=== PATIENT | male | born 1955 | race Caucasian/White ===

== ENCOUNTER → 2017-09-02 | Day surgery (SDC) | payer BC, OTHER ==
[2017-08-19 08:15] VITALS: Ht 177.8 cm; Wt 104.5 kg
[~2017-09-02] VITALS: Ht 177.8 cm; Wt 104.5 kg
[~2017-09-02] MED LIST: LIDOCAINE HCL 2% 2 ML VIAL (20MG/ML) ONE; PANT40TA PO; PROPOFOL IV EMULSION 10 MG/ML 20 ML VIAL IV ONE; SODIUM CHLORIDE 0.9% 500ML 500 ML IV ONE
[2017-09-02 12:30] VITALS: TEMP 36.7
--- NOTE | 2017-09-02 13:02 | Endo History and Physical ---
History & Physical Date of Service: Sep 02, 2017. Chief Complaint: HISTORY OF POLYPS, FAMILY HISTORY OF COLON CA Referring Physician: DR MART History of Present Illness 61 yo CM who presents for colonoscopy secondary to history of colon polyps and family history of colon cancer. Past Surgical History Hx Cardiac Surgery: No Hx Internal Defibrillator: No Hx Pacemaker: No Hx Abdominal Surgery: No Hx of Implantable Prosthesis: No Hx Post-Op Nausea and Vomiting: No Hx Cancer Surgery: No Hx Thoracic Surgery: No Hx Orthopedic: No Hx Urinary Tract Surgery: No Family History Colon CA Social History Smoking Status: Never Smoker Hx Substance Use: No Hx Alcohol Use: No Allergies Coded Allergies: Penicillins (Unverified Allergy, Unknown, RASH, 09/02/17) Current Medications Reported Home Medications Medications Dose Route/Sig Max Daily Dose Days Date Category Protonix (Pantoprazole Sodium) 40 Mg Tab 40 Mg PO DAILY PRN 08/19/17 Reported Vital Signs Weight (Kilograms): 104.55 Height (Feet): 5 Height (Inches): 10 Physical Exam General Appearance: WD/WN, no apparent distress Respiratory/Chest: Auscultation: breath sounds normal Cardiovascular: Heart Auscultation: RRR Abdomen: Bowel Sounds: normal Inspection & Palpation: soft, non-distended, no tenderness, guarding & rebound Assessment and Plan Assessment: 61 yo CM who presents for colonoscopy secondary to history of colon polyps and family history of colon cancer. Plan: Proceed with colonoscopy.
--- NOTE | 2017-09-02 13:51 | Discharge Instructions ---
Endoscopy Patient Instructions Date / Procedure(s) Performed Sep 02, 2017. Colonoscopy Allergy Information Coded Allergies: Penicillins (Unverified Allergy, Unknown, RASH, 09/02/17) Discharge Date / Findings Sep 02, 2017. Rectal polyp Diverticulosis Internal hemorrhoids Medication Instructions OK to resume all medications today as prescribed Reported Home Medications Medications Dose Route/Sig Max Daily Dose Days Date Category Protonix (Pantoprazole Sodium) 40 Mg Tab 40 Mg PO DAILY PRN 08/19/17 Reported Provider Instructions Activity Restrictions - No exercising or heavy lifting for 24 hours. - Do not drink alcohol the day of the procedure. - Do not drive a car or operate machinery until the day after the procedure. - Do not make any important decisions or sign important papers in 24 hours after the procedure. Following Day: - Return to full activity which may include returning to work/school. Diet Start your diet with liquids and light foods (jello, soup, juice, toast). Then eat your usual diet if not nauseated. Treatment For Common After Affects For mild abdominal pain, bloating, or excessive gas: - Rest - Eat lightly - Lie on right side Follow-Up Information Follow-up with DR MART as scheduled Anesthesia Information What You Should Know You have had a procedure that required some medicine to reduce anxiety and discomfort. This treatment is called moderate sedation. After receiving the treatment, you may be sleepy, but you will be able to breathe on your own. The effects of the treatment may last for several hours. Follow these instructions along with Activity/Diet recommendations noted above: * Do NOT do anything where dizziness or clumsiness would be dangerous. * Rest quietly at home today, then you can be up and about tomorrow. * Have a responsible person stay with you the rest of today. * You may have had an I.V. today. If so, you may take the dressing off later today. Recommendations Call your doctor if: * Trouble breathing * Continuous vomiting for more than 24 hours * Temperature above 101 degrees * Severe abdominal pain or bloating * Pain not relieved by pain medicine ordered * There is increased drainage or redness from any incision * A large amount of rectal bleeding greater than 2-3 tablespoons. (If you had a polyp/s removed or have hemorrhoids, a small amount of blood - from the rectum is to be expected.) * You have any unanswered questions or concerns. IN THE EVENT OF A SERIOUS EMERGENCY, GO TO THE NEAREST EMERGENCY ROOM Your discharge instructions were prepared by provider Rashad Hernandez. Patient Instructions Signature Page Sean Anderson Patient (or Guardian) Signature/Date: I have read and understand the instructions given to me by my caregivers. Caregiver/RN/Doctor Signature/Date: The above-named patient and/or guardian has received patient instructions on this date. + Original Patient Signature Page (only) stays with chart. Please make copy for patient.
--- NOTE | 2017-09-02 13:58 | GI REPORT ---
Procedure Date: 09/02/2017 1:10 PM Procedure: Colonoscopy Indications: High risk colon cancer surveillance: Personal history of colonic polyps, Family history of colon cancer in a first-degree relative Medicines: Monitored Anesthesia Care Complications: No immediate complications. Estimated Blood Loss: Estimated blood loss: none. Procedure: Pre-Anesthesia Assessment: - Prior to the procedure, a History and Physical was performed, and patient medications and allergies were reviewed. The patient's tolerance of previous anesthesia was also reviewed. The risks and benefits of the procedure and the sedation options and risks were discussed with the patient. All questions were answered, and informed consent was obtained. Prior Anticoagulants: The patient has taken no previous anticoagulant or antiplatelet agents. ASA Grade Assessment: II - A patient with mild systemic disease. After reviewing the risks and benefits, the patient was deemed in satisfactory condition to undergo the procedure. After I obtained informed consent, the scope was passed under direct vision. Throughout the procedure, the patient's blood pressure, pulse, and oxygen saturations were monitored continuously. The scope was introduced through the anus and advanced to the terminal ileum. The colonoscopy was performed without difficulty. The patient tolerated the procedure well. The quality of the bowel preparation was good. The terminal ileum, ileocecal valve, appendiceal orifice, and rectum were photographed. Findings: The perianal and digital rectal examinations were normal. Multiple small-mouthed diverticula were found in the sigmoid colon. A 3 mm polyp was found in the rectum. The polyp was sessile. The polyp was removed with a cold biopsy forceps. Resection and retrieval were complete. Non-bleeding internal hemorrhoids were found during retroflexion. The hemorrhoids were small. Impression: - Diverticulosis in the sigmoid colon. - One 3 mm polyp in the rectum, removed with a cold biopsy forceps. Resected and retrieved. - Non-bleeding internal hemorrhoids. Recommendation: - Resume previous diet. - Continue present medications. - Repeat colonoscopy for surveillance based on pathology results. - Return to primary care physician as previously scheduled. Rashad Hernandez DO 09/02/2017 1:57:38 PM This report has been signed electronically. Note Initiated On: 09/02/2017 1:10 PM I attest to the content of the Intraoperative Record and orders documented therein, exceptions below
--- NOTE | 2017-09-02 14:16 | Anesthesiology Progress Note ---
Anesthesia Post Op Note Date & Time Sep 02, 2017 at 14:15 Vital Signs Pain Intensity: 0 Vital Signs Past 12 Hours Date Time Temp Pulse Resp B/P (MAP) Pulse Ox O2 Delivery O2 Flow Rate FiO2 09/02/17 14:07 56 18 136/96 (109) 97 Room Air 09/02/17 13:51 59 16 115/80 (92) 95 Room Air 09/02/17 12:30 36.7 61 18 141/111 (121) 96 Room Air Notes Mental Status: alert / awake / arousable, participated in evaluation Pt Amnestic to Procedure: Yes Nausea / Vomiting: adequately controlled Pain: adequately controlled Airway Patency, RR, SpO2: stable & adequate BP & HR: stable & adequate Hydration State: stable & adequate Anesthetic Complications: no major complications apparent
[2017-09-02 14:22] VITALS: BP 154/96; PULSE 53; O2SAT 98
== END | disposition home or self-care (01) ==
LOC: C.GI 12:11
PROVIDERS: ATTEND Internal Medicine
DX: Z12.11 Encounter for screening for malignant neoplasm of colon (principal); K57.30 Diverticulosis of large intestine without perforation or abscess without bleeding; K62.1 Rectal polyp; K64.8 Other hemorrhoids; Z86.010 Personal history of colon polyps; Z80.0 Family history of malignant neoplasm of digestive organs; Z88.0 Allergy status to penicillin; E66.9 Obesity, unspecified; Z68.33 Body mass index [BMI] 33.0-33.9, adult

== ENCOUNTER 2020-02-13 07:17 | Observation (INO) ==
--- NOTE | 2020-01-15 12:02 | PAT Medication Instructions ---
Medication Instructions Date of Service January 15, 2020 Home Medications Medication Instructions Recorded pantoprazole 40 mg tablet,delayed 40 mg PO DAILY PRN #90 tab 07/31/19 release pantoprazole 40 mg tablet,delayed release 40 mg PO DAILY PRN [Glucosamine Chondroitin] 1 cap PO 3XWK STOP taking 2 weeks before surgery If surgery is within 2 weeks, stop taking as soon as possible. [Glucosamine Chondroitin] 1 cap PO 3XWK Take morning of surgery With a small sip of water, OTHERWISE NOTHING TO EAT OR DRINK AFTER MIDNIGHT: pantoprazole 40 mg tablet,delayed release 40 mg PO DAILY PRN (if needed) Other Notes If you have any questions please call us at [phone] or [phone] or [phone] or [phone]
--- NOTE | 2020-01-16 12:52 | Anesthesiology Consultation ---
Date of Service January 16, 2020 Assessment & Plan (1) Encounter for pre-operative examination: COVID Status: As of 01/15 assessment, patient denies travel to endemic area, known exposure/sick contacts, or symptoms of COVID19. Patient instructed that they and their household members must follow strict social distancing guidelines, wear a mask in public and avoid travel for 14 days prior to surgery. Preoperative COVID19 testing to be completed prior to surgery per surgeon's arra ngements. Patient made aware to self-isolate as much as possible between COVID testing and surgery. Patient had a knee scope [place] [facility] [place] -- uneventful intraoperative course, but became unresponsive in PACU after being given "25 mcg Fentanyl IV @ 1449, 1454 and 1459. At 1520, while recovery and D/C instructions with at bedside - pt became unresponsive. ... Intubated backslash mask ventilation, patient's respiratory effort was minimal - RR 4/min? Treated with Narcan 40mcg IV x 3 with rapid improvement in LOC and respiratory status. Pt observed for 1 hour after resuscitation before d/c to home." See full report from 08/08/19 from [facility] scanned to chart for details. Chart Review Chart Review: Acceptable Risk for Surgery (pending surgeon ordered PCP clearance 01/18) and Patient seen in Pre Admission Testing Teaching & Discussion Instructed NPO after midnight before surgery, except medications with 15 cc of water. Medication instructions provided according to the PAT guidelines. History Surgery Operation Date: 02/13/20 12:55 Proposed Procedures p Left Total Knee Arthroplasty - Royce Florence DO Height/Weight Height: 5 ft 10 in Weight: 114.4 kg Allergies Allergy/AdvReac Type Severity Reaction Status Date / Time fentanyl Allergy Severe STOPPED Verified 01/11/20 08:57 BREATHING Penicillins Allergy Mild RASH Unverified 01/11/20 08:54 Medications Home Medications Medication Instructions Recorded Confirmed Last Taken pantoprazole 40 mg tablet,delayed 40 mg PO DAILY PRN #90 tab 07/31/19 01/11/20 Unknown release glucos sul [id number] 1 cap PO 3XWK 01/11/20 01/11/20 Unknown [Glucosamine Chondroitin] Past Medical History Medical History GERD (gastroesophageal reflux disease) Controlled Heart murmur CARDIAC WORK UP DONE IN PAST Osteoarthritis Exercise / Class Metabolic Activity II 4-5 Yardwork/Stairs/Walk up hill Past Family History Family History Brother Colon cancer Lymphoma Adult respiratory distress syndrome Family history of diabetes mellitus Father Myocardial infarction Mother Diabetes Peripheral vascular disease Family history of diabetes mellitus Sister Stroke Family history of diabetes mellitus Past Surgical History Surgical History History of arthroscopy RT KNEE History of carpal tunnel release RT History of colonoscopy History of tonsillectomy and adenoidectomy History of tooth extraction Past Anesthesia History No Family Hx of Anesthesia Complications (unsure) History of PONV No Hx of PONV and No Hx of Motion Sickness Social History Smoking Status: Never smoker Do You Dip or Chew Tobacco: No Hx Alcohol Use: No Hx Substance Use: No Review of Systems Pt denies any recent chest pain, shortness of breath, palpitations, cough, fever, URI, or uncontrolled acid reflux. Physical Exam Vital Signs BP: 152/83 P: 68bpm SPO2: 97% RA T: 98.5 F R: 16 ENMT Mouth: no dental restorations, no chipped teeth and no loose teeth Thyromental Distance: > or= 3.5 Finger Breadths Mallampati Class: I Neck normal visual inspection; neck extension not limited Respiratory normal respiratory effort Auscultation: lungs clear to auscultation bilaterally Cardiovascular Rate/Rhythm: regular rate and regular rhythm Heart Sounds: + murmur (II/ mitral area) Testing Laboratory Results 01/16/20 13:18 01/16/20 13:18 PT 10.8 Seconds (9.0-12.0) 01/16/20 13:18 INR 1.0 (0.9-1.1) 01/16/20 13:18 APTT 28.6 Seconds (21.0-31.0) 01/16/20 13:18 Hemoglobin A1c 5.8 % (4.5-5.6) H 01/16/20 13:18 Urine Color Yellow 01/16/20 Unknown Urine Appearance Clear (Clear) 01/16/20 Unknown Urine pH 5.0 (4.5-7.5) 01/16/20 Unknown Ur Specific [place] 1.022 (1.000-1.030) 01/16/20 Unknown Urine Protein Negative (Negative) 01/16/20 Unknown Urine Glucose (UA) Negative (Negative) 01/16/20 Unknown Urine Ketones Trace (Negative) H 01/16/20 Unknown Urine Nitrite Negative (Negative) 01/16/20 Unknown Ur Leukocyte Esterase Negative (Negative) 01/16/20 Unknown Blood Type B Positive 01/16/20 13:18 Antibody Screen NEGATIVE 01/16/20 13:18 Electrocardiogram Date: 07/21/19 Findings: + NSR @ (64bpm) Chest X-Ray Date: 09/26/19 Findings: + NAD Echocardiogram Date: 08/16/19 EF: 55-60% Mild concentric LVH. Mild to moderate aortic sclerosis. No hemodynamically significant valvular aortic stenosis. Mild mitral regurgitation.
[2020-01-16 14:24] LABS: Basophils # (auto) 0.01 K/uL (0-0.2); Basophils % (auto) 0.2 %; Eosinophils # (auto) 0.07 K/uL (0-0.5); Eosinophils % (auto) 1.6 %; Hematocrit (blood only) 42.1 % (42-52); Hemoglobin 14.4 g/dL (14.0-18.0); Lymphocytes % (auto) 36.1 %; Mean Corpuscular Hemoglobin 31.2 pg (25-34); Mean Corpuscular Hgb Conc 34.2 g/dL (32-36); Mean Corpuscular Volume 91.3 fL (80-100); Mean Platelet Volume 10.5 fL (7.4-10.4); Monocytes # (auto) 0.47 K/uL (0.11-0.59); Monocytes % (auto) 10.6 %; Neutrophils # (auto) 2.28 K/uL (1.4-6.5); Neutrophils % (auto) 51.5 %; Platelet Count 146 K/uL (130-400); RDW Coefficient of Variation 13.4 % (11.5-14.5); RDW Standard Deviation 44.4 fL (36.4-46.3); Red Blood Count 4.61 M/uL (4.7-6.1); White Blood Count 4.43 K/uL (4.8-10.8)
[2020-01-16 14:27] LABS: Appearance Urine Clear (Clear); Bilirubin Urine Negative (Negative); Blood Urine Negative (Negative); Color Urine Yellow; Glucose Urine UA Negative (Negative); Ketones Urine Trace (Negative); Leukocyte Esterase Urine Negative (Negative); Nitrite Urine Negative (Negative); Protein Urine Negative (Negative); Specific Gravity Urine 1.022 (1.000-1.030); Urobilinogen Urine Negative (Negative)
[2020-01-16 14:31] LABS: Albumin Level 3.7 gm/dl (3.4-5.0); BUN Creatinine Ratio 16.8 (10-20); Calcium 8.8 mg/dl (8.5-10.1); Creatinine Clr Calc Pharmacy 102.6 ml/min; Est GFR (African American) 105.2; Est GFR (Non-African American) 90.8; Potassium 3.5 mmol/L (3.5-5.1)
[2020-01-16 14:40] LABS: Partial Thromboplastin Time 28.6 Seconds (21.0-31.0); Prothrombin Time 10.8 Seconds (9.0-12.0)
[2020-01-16 15:01] LABS: Estimated Average Glucose 120 mg/dl; Hemoglobin A1C 5.8 % (4.5-5.6)
--- NOTE | 2020-01-26 09:03 | History & Physical Report ---
Date of Service January 26, 2020 Date of surgery: 02/13/20 procedure: Left Total Knee Arthroplasty Assessment & Plan (1) Arthritis of knee, left: presents with continued pain left knee, has bone on bone changes medial compartment with joint space narrowing, osteophyte formation and subchondral sclerosis. we discussed options, he would like to proceed with left total knee replacement at [facility]. The risks and benefits have been discussed including, but not limited to, risk of infection, nerve injury, stiffness, loss of motion, failure to improve, etc. Reasonable outcomes and options of treatment were discussed. An explanation of appropriate alternatives to the procedure that may be advantageous were discussed and their risks and benefits, as well as the risks and benefits of not proceeding with treatment. I offered to answer any additional inquiries concerning the treatment involved. All the patient's questions were answered. The patient is agreeable, understanding of the treatment plan and alternatives, and wishes to proceed with the treatment plan. History of Present Illness Chief Complaint: left knee pain Primary Care Provider: Lucio Freed MD Sean is a 64 year old male who complains of left knee pain, presents for pre- op evaluation prior to a left total knee replacement by dr Florence at [facility]. He complains of pain, crepitus, decreased range of motion, instability and stiffness in the left knee. He states that the symptoms have been chronic and non-traumatic and the symptoms occur constantly with intermittent worsening. Currently the patient states that the symptoms are moderate-severe. The pain is described as aching, sharp and throbbing. The symptoms occur continuously. The symptoms are aggravated by ascending stairs, daily activities, first steps while awake walking. Prior NSAIDs include Mobic, Aleve and IBU. Prior pain medications include Tylenol. He has had Pt and sometimes uses a knee brace. Allergies Allergy/AdvReac Type Severity Reaction Status Date / Time fentanyl Allergy Severe STOPPED Verified 01/19/20 09:46 BREATHING Penicillins Allergy Mild RASH Verified 01/19/20 09:46 Past Med/Surg History Medical History GERD (gastroesophageal reflux disease) Controlled Heart murmur CARDIAC WORK UP DONE IN PAST Osteoarthritis Surgical History History of arthroscopy RT KNEE History of carpal tunnel release RT History of colonoscopy History of tonsillectomy and adenoidectomy History of tooth extraction Family History Brother Colon cancer Lymphoma Adult respiratory distress syndrome Family history of diabetes mellitus Father Myocardial infarction Mother Diabetes Peripheral vascular disease Family history of diabetes mellitus Sister Stroke Family history of diabetes mellitus Social History Smoking Status: Never smoker Second Hand Exposure: Yes; Hx Alcohol Use: No Hx Substance Use: No Preferred Language: Greek Sock Knitter Required: No Beliefs That Will Affect Care: None marital status: Current Living Situation: Spouse current occupational status: retired Feels Safe at Home: Yes Review of Systems Review of Systems: All systems reviewed & are unremarkable except as noted in HPI & below Constitutional: no fever, no chills and no sweats Respiratory: no cough and no dyspnea Cardiovascular: no chest pain, no dyspnea and no orthopnea Gastrointestinal: no abdominal pain, no nausea and no vomiting Musculoskeletal: as per Subjective / HPI Physical Exam Physical Exam: Ht: 5ft 10in Wt: 114kg Constitutional: WD/WN, vitals as above no acute distress Respiratory: normal respiratory effort, lungs clear to auscultation no respiratory distress, no labored breathing and does not use accessory muscles Cardiovascular: RRR, no murmur, no edema Gastrointestinal (Abdomen): normal bowel sounds, soft, nontender, no hepatosplenomegaly Musculoskeletal: Knee: + knee abnormal to inspection (left knee), + effusion (+1 effusion), + surgical incision (well healed portals), + limited ROM of knee (ROM 0/3/110), + knee ROM with crepitation, + joint line tenderness (medial joint line) and + Chad's sign positive; no deformity, no skin erythema, no ecchymosis, no valgus laxity, no varus laxity, anterior drawer test negative, Marjorie's sign negative and pivot shift test negative Results & Data Results & Data ([facility]) Laboratory Results Laboratory Results WBC 4.43 K/uL (4.8-10.8) L 01/16/20 13:18 RBC 4.61 M/uL (4.7-6.1) L 01/16/20 13:18 Hgb 14.4 g/dL (14.0-18.0) 01/16/20 13:18 Hct 42.1 % (42-52) 01/16/20 13:18 MCV 91.3 fL (80-100) 01/16/20 13:18 MCH 31.2 pg (25-34) 01/16/20 13:18 MCHC 34.2 g/dL (32-36) 01/16/20 13:18 RDW Std Deviation 44.4 fL (36.4-46.3) 01/16/20 13:18 RDW Coeff of Vanessa 13.4 % (11.5-14.5) 01/16/20 13:18 Plt Count 146 K/uL (130-400) 01/16/20 13:18 MPV 10.5 fL (7.4-10.4) H 01/16/20 13:18 Immature Gran % (Auto) 0.0 % 01/16/20 13:18 Neut % (Auto) 51.5 % 01/16/20 13:18 Lymph % (Auto) 36.1 % 01/16/20 13:18 Grady % (Auto) 10.6 % 01/16/20 13:18 Eos % (Auto) 1.6 % 01/16/20 13:18 Baso % (Auto) 0.2 % 01/16/20 13:18 Neut # (Auto) 2.28 K/uL (1.4-6.5) 01/16/20 13:18 Lymph # (Auto) 1.60 K/uL (1.2-3.4) 01/16/20 13:18 Grady # (Auto) 0.47 K/uL (0.11-0.59) 01/16/20 13:18 Eos # (Auto) 0.07 K/uL (0-0.5) 01/16/20 13:18 Baso # (Auto) 0.01 K/uL (0-0.2) 01/16/20 13:18 Immature Gran # (Auto) 0.00 K/uL (0.00-0.02) 01/16/20 13:18 PT 10.8 Seconds (9.0-12.0) 01/16/20 13:18 INR 1.0 (0.9-1.1) 01/16/20 13:18 APTT 28.6 Seconds (21.0-31.0) 01/16/20 13:18 PTT Ratio 1.0 01/16/20 13:18 Sodium 141 mmol/L (136-145) 01/16/20 13:18 Potassium 3.5 mmol/L (3.5-5.1) 01/16/20 13:18 Chloride 109 mmol/L (98-107) H 01/16/20 13:18 Carbon Dioxide 25 mmol/L (21-32) 01/16/20 13:18 Anion Gap 7.0 (3-11) 01/16/20 13:18 BUN 15 mg/dl (7-18) 01/16/20 13:18 Creatinine 0.88 mg/dl (0.6-1.4) 01/16/20 13:18 Est Cr Clr Drug Dosing 102.6 ml/min 01/16/20 13:18 Est GFR ( Amer) 105.2 01/16/20 13:18 Est GFR (Non-Af Amer) 90.8 01/16/20 13:18 BUN/Creatinine Ratio 16.8 (10-20) 01/16/20 13:18 Glucose 102 mg/dl (70-99) H 01/16/20 13:18 Estimat Average Glucose 120 mg/dl 01/16/20 13:18 Hemoglobin A1c 5.8 % (4.5-5.6) H 01/16/20 13:18 Calcium 8.8 mg/dl (8.5-10.1) 01/16/20 13:18 Albumin 3.7 gm/dl (3.4-5.0) 01/16/20 13:18 Urine Color Yellow 01/16/20 Unknown Urine Appearance Clear (Clear) 01/16/20 Unknown Urine pH 5.0 (4.5-7.5) 01/16/20 Unknown Ur Specific [place] 1.022 (1.000-1.030) 01/16/20 Unknown Urine Protein Negative (Negative) 01/16/20 Unknown Urine Glucose (UA) Negative (Negative) 01/16/20 Unknown Urine Ketones Trace (Negative) H 01/16/20 Unknown Urine Blood Negative (Negative) 01/16/20 Unknown Urine Nitrite Negative (Negative) 01/16/20 Unknown Urine Bilirubin Negative (Negative) 01/16/20 Unknown Urine Urobilinogen Negative (Negative) 01/16/20 Unknown Ur Leukocyte Esterase Negative (Negative) 01/16/20 Unknown Blood Type B Positive 01/16/20 13:18 Antibody Screen NEGATIVE 01/16/20 13:18 Diagnostic Findings Left Knee X-ray: left knee series confirm advanced degenerative changes to the left knee, greatest medial compartments and patellofemoral joint, showing joint space narrowing, osteophyte formation and subchondral sclerosis. no acute bony path ology noted.
[~2020-02-13 07:17] MED LIST changes: +ACETAMINOPHEN 500 MG TAB PO SCH; +CeleBREX 200 MG CAP PO SCH; +FAMOTIDINE 20 MG TAB PO SCH; +GABAPENTIN 600 MG DOSE PO SCH; -LIDOCAINE HCL 2% 2 ML VIAL (20MG/ML) ONE; +LR 500ML BOLUS, THEN 15ML/HR IV SCH; +METOCLOPRAMIDE HCL 10 MG TABLET PO SCH; -PANT40TA PO; -PROPOFOL IV EMULSION 10 MG/ML 20 ML VIAL IV ONE; +ROPIVACAINE 0.5% HCL/PF 150 MG, BUPIVACAINE 0.5% MPF 30 ML, EPINEPHrine 30MG/30ML (OR U... INSTIL SCH; -SODIUM CHLORIDE 0.9% 500ML 500 ML IV ONE; +TRANEXAMIC ACID 1,000 MG **IV Pre-op IV SCH; +VANCOMYCIN HCL 1,000 MG/270 ML BAG IV SCH; +VANCOMYCIN HCL 1,750 MG in SODIUM CHLORIDE 0.9% 500 ML IV SCH; +dexAMETHasone 4 MG TAB PO SCH
[2020-02-13] MEDS ORDERED: EPINEPHrine INJ 1 MG/ML AMP ONE (07:33)
[2020-02-13] MEDS ORDERED: ROPIVACAINE 0.5% 5 MG/ML 30 ML VIAL ONE (07:33)
[2020-02-13] MEDS ORDERED: BUPIVACAINE 0.5 % 5 MG/1 ML PF 10ML VIAL ONE (07:33)
[2020-02-13] MEDS ORDERED: MIDAZOLAM HCL 1 MG/ML 2ML VIAL ONE ×2 (08:24→08:25)
[2020-02-13] MEDS ORDERED: LIDOCAINE HCL 2% 2 ML VIAL/AMP(20MG/ML) INFIL ONE (08:26)
[2020-02-13] MEDS ORDERED: PROPOFOL IV EMULSION 10 MG/ML 20 ML VIAL IV ONE (08:26)
--- NOTE | 2020-02-13 08:30 | History & Physical Bridge Note ---
Date of Service February 13, 2020 History & Physical Bridge Note I have examined the patient, reviewed the History & Physical and in the interval since the performance of the History & Physical I have noted the following changes of clinical significance: no changes noted
[2020-02-13] MEDS ORDERED: ORTHO JOINT ANESTHETIC ONE (09:03)
[2020-02-13] MEDS ORDERED: BACITRACIN INJ 50,000 UNIT VIAL ONE (09:04)
[2020-02-13] MEDS: TRANEXAMIC ACID 1,000 MG **IV Intra-op IV SCH ×2 (09:38→11:05)
[2020-02-13] MEDS ORDERED: ATROPINE SULFATE 0.1 MG/ML 10ML SYR IV PRN ×2 (10:30→13:31)
[2020-02-13] MEDS ORDERED: ePHEDrine sulfate 50 MG/ML AMP IV PRN ×2 (10:30→13:31)
--- NOTE | 2020-02-13 10:58 | Operative Report ---
Post Operative Report Pre & Post Diagnosis Operation Date: 02/13/20 09:55 Pre-Op Diagnosis: Unilateral Primary Osteoarthritis, Left Knee Post-Op Diagnosis: Unilateral Primary Osteoarthritis, Left Knee I identified the patient and participated in the time-out.: Yes Procedure Operation Date: 02/13/20 09:55 Actual Procedures p Left Total Knee Arthroplasty(Left) utilizing [employer] NephSahare[employer] journey 2 patient matched total knee arthroplasty size 6 femur 5 tibia 10 polyethylene 32 oval patella- Royce Florence DO Surgeon Royce Florence DO [employer] VICKI Marshall Estimated Blood Loss 5 Findings Consistent with Post-Op Diagnosis Patient presents with severe end-stage tricompartmental degenerative joint disease of the left knee with subchondral sclerosis mild subchondral cystic changes marginal osteophytes varus alignment moderate to large effusion eburnated [id number] Specimens Bone and cartilage Anesthesia Type MAC Spinal Regional Disposition Accompanied Patient To Recovery: No Disposition: Recovery Room Indications Patient presents for left total knee arthroplasty failed attempted conservative management clinic physical therapy anti-inflammatories relative rest activity modification corticosteroid injection Visco supplementation above intraoperative findings noted time surgery. Description of Procedure After proper prepping and draping of the left lower extremity anterior midline incision was made over the region of the extensor extensor mechanism after meticulous hemostasis was obtained and maintained in subcutaneous tissues a medial parapatellar incision was made The patella was subluxed lateralward the medial lateral gutter were cleaned from any hypertrophic synovitis and scar tissue of the distal femoral block was placed and the distal femoral osteotomy cut was made subsequently the chamfers anterior and posterior osteotomy cuts were made utilizing the 4-in-1 block the tibia was subsequently subluxed anteriorward medial and ateral meniscal remnants were excised in their entirety remnants of the anterior and posterior cruciate ligaments were excised in their entirety excellent exposure of the proximal tibia was obtained the tibial osteotomy guide was placed on the proximal tibial osteotomy cut was made once again the knee was irrigated with copious amounts of sterile saline solution the patella was subsequently everted lateralward thickened scar tissue around the patella was removed the patella was subsequently cut utilizing a freehand technique and was drilled prepared for final preparation and placement of aguirre la socially flexion-extension gaps were checked and the equal and symmetric trials were placed to the appropriate femoral and tibial trials with poly-spacer being placed for equal flexion and extension gaps and full range of motion including extension to 0 and flexion to 140 the trial components after having been taken to recovery range of motion was subsequently removed meticulous hemostasis was obtained and maintained subsequently a knee block injection of joint cocktail including ropivacaine 0.5% 150 mg. Bupivacaine 0.5% epinephrine 1-200,030 mL's toradol 30 mg dexamethasone 4 mg ketamine 10 mg clonidine 100 micrograms normal saline solution 30 mg was infiltrated into the soft tissues of the posterior knee medial lateral gutters and periosteal synovium special attention was paid to protect neurovascular structures at all times subsequently trial components having been removed the knee was irrigated with sterile saline solution. debris was removed the proximal tibia was subsequently prepared and was made ready for the placement of the tibial component tibial component was also cemented and tamped into position the femoral component was subsequently placed and cemented in the position the patellar component was subsequently cemented in position because hemostasis once again obtained and maintained wound having been thoroughly irrigated with debridement and debridement lavage was performed as well as a medial parapatellar incision closed with #1 Vicryl in interrupted fashion subcutaneous was closed with #2 Vicryl skin was closed with skin clips. PA-C was necessary for prepping and drapping as well as wound closure of deep fascia Sub cutaneous tissue and skin and was necessary for the case. A sterile compressive dressing was placed patient was taken to recovery in stable condition of report dictated by Naman I attest to the content of the Intraoperative Record and any orders documented therein. Any exceptions are noted below. I attest to the content of the Intraoperative Record and any orders documented therein. Any exceptions are noted below.
--- NOTE | 2020-02-13 12:37 | XRay Report ---
XR knee LT 1 or 2V routine HISTORY: 64 years-old Male Surgical Post Op left knee total joint arthroplasty COMPARISON: None TECHNIQUE: 2 views of the left knee FINDINGS: Left knee total joint arthroplasty and patella resurfacing. Expected postoperative soft tissue swelli ng and deep tissue air with surgical drainage catheter. Arterial calcifications. Indeterminate patchy areas of sclerosis are noted involving the distal femur and proximal tibia. IMPRESSION: 1. Total joint arthroplasty and patella resurfacing with expected postoperative changes. 2. Ill-defined areas of sclerosis involve the medullary space of the distal femur and proximal tibia. This may reflect areas of remote bone infarcts and should be correlated with prior imaging. ACT 112: Negative or not required by law. The above report was generated using voice recognition software. It may contain grammatical, syntax o r spelling errors. Electronically signed by: Tyler Almendarez M.D. 02/13/2020 12:36 PM
--- NOTE | 2020-02-13 13:31 | Anesthesiology Progress Note ---
Date of Service February 13, 2020 Anesthesia Post Procedure Vital Signs Vital Signs: Temp Pulse Resp BP BP Pulse Ox 02/13/20 13:20 36.2 C L 74 19 133/79 94 02/13/20 13:10 69 16 125/75 97 02/13/20 13:00 70 17 115/76 97 02/13/20 12:50 72 17 122/73 95 02/13/20 12:40 73 17 129/79 95 02/13/20 12:30 36.2 C L 77 17 114/81 95 02/13/20 12:20 83 18 121/73 92 02/13/20 12:10 83 17 128/70 93 02/13/20 12:00 75 18 120/80 97 02/13/20 11:50 78 15 117/66 95 02/13/20 11:40 36.2 C L 80 13 118/74 100 02/13/20 07:35 37 C 60 18 162/98 H 97 Pain Intensity Left Knee: Pain Intensity: 0 Transfer of Care Handoff Completed per policy Notes Mental Status: alert / awake / arousable Patient Amnestic to Procedure: Yes Nausea / Vomiting: adequately controlled Pain: adequately controlled Airway Patency, RR, SpO2: stable & adequate BP & HR: stable & adequate Hydration State: stable & adequate Anesthetic Complications: no major complications apparent
[2020-02-13] MEDS ORDERED: OXYCODONE HCL IR 5 MG TAB (IMMEDIATE RELEASE) PO PRN (13:38)
[2020-02-13] MEDS ORDERED: ONDANSETRON INJ 2 MG/ML 2 ML VIAL IV PRN (13:38)
[2020-02-13] MEDS ORDERED: METOCLOPRAMIDE HCL INJ 5 MG/ML 2 ML VIAL IV PRN (13:38)
[2020-02-13] MEDS ORDERED: HYDROmorphone INJ 1 MG/ML SYRINGE IV PRN (13:38)
[2020-02-13] MEDS ORDERED: NALOXONE HCL 0.4 MG/1 ML VIAL/CARP IV PRN (13:38)
[2020-02-13] MEDS ORDERED: MAGNESIUM HYDROXIDE SUSP 30 ML UDC PO PRN (13:38)
[2020-02-13] MEDS ORDERED: bisacodyL 10 MG SUPP PR PRN (13:38)
[2020-02-13] MEDS: SODIUM CHLORIDE 0.9% 1000ML 1,000 ML IV SCH (14:16)
[2020-02-13] MEDS: KETOROLAC 30 MG/ML VIAL IV SCH ×2 (14:17→21:05)
[2020-02-13] MEDS: CLINDAMYCIN 600 MG in DEXTROSE 5% 50 ML IV SCH ×2 (15:46→23:45)
[2020-02-13] MEDS: ACETAMINOPHEN 500 MG TAB PO SCH (15:47)
[2020-02-13] MEDS ORDERED: SENNA 8.6 MG TAB PO SCH (21:00)
[2020-02-13] MEDS: DOCUSATE SODIUM 100 MG CAP PO SCH (21:09)
[2020-02-13] MEDS: ASPIRIN 81 MG ECTAB PO SCH (21:28)
[2020-02-14] MEDS: SODIUM CHLORIDE 0.9% 1000ML 1,000 ML IV SCH (02:15)
[2020-02-14] MEDS: KETOROLAC 30 MG/ML VIAL IV SCH ×2 (02:38→07:45)
[2020-02-14] MEDS: ACETAMINOPHEN 500 MG TAB PO SCH ×2 (05:30→13:47)
[2020-02-14 06:17] LABS: Hematocrit (blood only) 37.1 % (42-52); Hemoglobin 12.5 g/dL (14.0-18.0); Mean Corpuscular Hemoglobin 30.9 pg (25-34); Mean Corpuscular Hgb Conc 33.7 g/dL (32-36); Mean Corpuscular Volume 91.6 fL (80-100); Mean Platelet Volume 10.1 fL (7.4-10.4); Platelet Count 142 K/uL (130-400); RDW Coefficient of Variation 13.2 % (11.5-14.5); RDW Standard Deviation 44.2 fL (36.4-46.3); Red Blood Count 4.05 M/uL (4.7-6.1); White Blood Count 12.36 K/uL (4.8-10.8)
[2020-02-14 06:53] LABS: BUN Creatinine Ratio 15.8 (10-20); Calcium 8.7 mg/dl (8.5-10.1); Creatinine Clr Calc Pharmacy 117.6 ml/min; Est GFR (African American) 109.4; Est GFR (Non-African American) 94.4
--- NOTE | 2020-02-14 07:07 | Orthopedic Progress Note ---
Date of Service February 14, 2020 Assessment & Plan (1) History of total left knee replacement: POD #1 s/p Left TKA pt/ot dvt proph with ARMEN/SCD/ASA plan for d/c home with HHPT later today, will have home nursing d/c hemovac tomorrow Admission and Anticipated Discharge Date Admission Date: February 13, 2020 Subjective POD #1 s/p Left TKA Review of Systems Constitutional: no fever, no chills and no sweats Respiratory: no cough and no dyspnea Cardiovascular: no chest pain and no dyspnea Gastrointestinal: no abdominal pain, no nausea and no vomiting Physical Exam Physical Exam: Vital Signs Temp 36.8 C 02/14/20 03:35 Pulse 71 02/14/20 03:35 Resp 20 02/14/20 03:35 BP 144/83 H 02/14/20 03:35 Pulse Ox 95 02/14/20 03:35 Intake & Output 02/13/20 02/14/20 02/14/20 18:59 06:59 18:59 Intake Total 3240.667 / 4243.00 0 1002.333 / 4243.00 0 Output Total 1645 / 4446 2801 / 4446 Balance 1595.667 / -203.00 0 -1798.667 / -203.0 00 Weight 113.4 kg Intake: IV 1640.667 / 2543.00 0 902.333 / 2543.000 Cleocin 600 mg In D5w 50 ml @ 54 / 108 54 / 108 100 mls/hr IV Q8H [facility] Rx#: [id number] Lr 1,000 ml @ 15 mls/hr IV . 700 / 700 Q24H [facility] Rx#:[id number] Nss 1000ML 1,0 00 ml @ 100 mls/ 151.667 / 1000.000 848.333 / 1000.000 hr IV .Q10H SC H Rx#:[id number] TRANEXAMIC ACI D / 0.7% NACL 1, 200 / 200 000 mg In 100 ml @ 600 mls/hr IV TODAY@0600 [facility] Rx#:[id number] Vancomycin HCl 1,750 mg In Nss 535.000 / 535.000 500 ml @ 200 m ls/hr IV PREOP [facility] Rx#:[id number] IV Perioperative 1600 / 1600 Oral 100 / 100 Output: Urine 350 / 2450 2100 / 2450 Estimated Blood Loss 5 / 5 Urine Amount (Ca theter) 1250 / 1250 Straight 1250 / 1250 Drain Output 40 / 740 700 / 740 Left Knee Hemo vac 40 / 740 700 / 740 # Bowel Movement s Other: # Unmeasured Voi ds 2 1 Constitutional: WD/WN, vitals as above no acute distress Musculoskeletal: Left Leg: NVDI, calf SNT, negative john sign. DP palpable, able to wiggle toes/ankle movement without difficulty. dressing clean dry and i ntact. Results & Data ([facility]) Vital Signs (Past 12 Hours) Vital Signs Temp Pulse Resp BP Pulse Ox 02/14/20 03:35 36.8 C 71 20 144/83 H 95 02/13/20 23:26 36.8 C 74 16 146/81 H 96 Laboratory Results Laboratory Results WBC 12.36 K/uL (4.8-10.8) H 02/14/20 05:54 RBC 4.05 M/uL (4.7-6.1) L 02/14/20 05:54 Hgb 12.5 g/dL (14.0-18.0) L 02/14/20 05:54 Hct 37.1 % (42-52) L 02/14/20 05:54 MCV 91.6 fL (80-100) 02/14/20 05:54 MCH 30.9 pg (25-34) 02/14/20 05:54 MCHC 33.7 g/dL (32-36) 02/14/20 05:54 RDW Std Deviation 44.2 fL (36.4-46.3) 02/14/20 05:54 RDW Coeff of Vanessa 13.2 % (11.5-14.5) 02/14/20 05:54 Plt Count 142 K/uL (130-400) 02/14/20 05:54 MPV 10.1 fL (7.4-10.4) 02/14/20 05:54 Immature Gran % (Auto) 0.0 % 01/16/20 13:18 Neut % (Auto) 51.5 % 01/16/20 13:18 Lymph % (Auto) 36.1 % 01/16/20 13:18 Cocke % (Auto) 10.6 % 01/16/20 13:18 Eos % (Auto) 1.6 % 01/16/20 13:18 Baso % (Auto) 0.2 % 01/16/20 13:18 Neut # (Auto) 2.28 K/uL (1.4-6.5) 01/16/20 13:18 Lymph # (Auto) 1.60 K/uL (1.2-3.4) 01/16/20 13:18 Cocke # (Auto) 0.47 K/uL (0.11-0.59) 01/16/20 13:18 Eos # (Auto) 0.07 K/uL (0-0.5) 01/16/20 13:18 Baso # (Auto) 0.01 K/uL (0-0.2) 01/16/20 13:18 Immature Gran # (Auto) 0.00 K/uL (0.00-0.02) 01/16/20 13:18 PT 10.8 Seconds (9.0-12.0) 01/16/20 13:18 INR 1.0 (0.9-1.1) 01/16/20 13:18 APTT 28.6 Seconds (21.0-31.0) 01/16/20 13:18 PTT Ratio 1.0 01/16/20 13:18 Sodium 140 mmol/L (136-145) 02/14/20 05:54 Potassium 4.0 mmol/L (3.5-5.1) 02/14/20 05:54 Chloride 110 mmol/L (98-107) H 02/14/20 05:54 Carbon Dioxide 23 mmol/L (21-32) 02/14/20 05:54 Anion Gap 7.0 (3-11) 02/14/20 05:54 BUN 13 mg/dl (7-18) 02/14/20 05:54 Creatinine 0.80 mg/dl (0.6-1.4) 02/14/20 05:54 Est Cr Clr Drug Dosing 117.6 ml/min 02/14/20 05:54 Est GFR ( Amer) 109.4 02/14/20 05:54 Est GFR (Non-Af Amer) 94.4 02/14/20 05:54 BUN/Creatinine Ratio 15.8 (10-20) 02/14/20 05:54 Glucose 128 mg/dl (70-99) H 02/14/20 05:54 Estimat Average Glucose 120 mg/dl 01/16/20 13:18 Hemoglobin A1c 5.8 % (4.5-5.6) H 01/16/20 13:18 Calcium 8.7 mg/dl (8.5-10.1) 02/14/20 05:54 Albumin 3.7 gm/dl (3.4-5.0) 01/16/20 13:18 Specimen Hemolysis 02/14/20 05:54 Urine Color Yellow 01/16/20 Unknown Urine Appearance Clear (Clear) 01/16/20 Unknown Urine pH 5.0 (4.5-7.5) 01/16/20 Unknown Ur Specific [place] 1.022 (1.000-1.030) 01/16/20 Unknown Urine Protein Negative (Negative) 01/16/20 Unknown Urine Glucose (UA) Negative (Negative) 01/16/20 Unknown Urine Ketones Trace (Negative) H 01/16/20 Unknown Urine Blood Negative (Negative) 01/16/20 Unknown Urine Nitrite Negative (Negative) 01/16/20 Unknown Urine Bilirubin Negative (Negative) 01/16/20 Unknown Urine Urobilinogen Negative (Negative) 01/16/20 Unknown Ur Leukocyte Esterase Negative (Negative) 01/16/20 Unknown Blood Type B Positive 01/16/20 13:18 Antibody Screen NEGATIVE 01/16/20 13:18 Diagnostic Findings XR knee LT 1 or 2V routine HISTORY: 64 years-old Male Surgical Post Op left knee total joint arthroplasty COMPARISON: None TECHNIQUE: 2 views of the left knee FINDINGS: Left knee total joint arthroplasty and patella resurfacing. Expected pos toperative soft tissue swelling and deep tissue air with surgical drainage catheter. Arterial calcifications. Indeterminate patchy areas of sclerosis are noted involving the distal femur and proximal tibia. IMPRESSION: 1. Total joint arthroplasty and patella resurfacing with expected postoperative changes. 2. Ill-defined areas of sclerosis involve the medullary space of the distal femur and proximal tibia. This may reflect areas of remote bone infarcts and should be correlated with prior imaging.
[2020-02-14 07:51] VITALS: PULSE 69
[2020-02-14] MEDS: DOCUSATE SODIUM 100 MG CAP PO SCH (08:26)
[2020-02-14] MEDS: ASPIRIN 81 MG ECTAB PO SCH (08:26)
[2020-02-14] MEDS ORDERED: MULTIVITAMIN TAB PO SCH (09:00)
[2020-02-14 11:21] VITALS: BP 125/76; TEMP 98.1; O2SAT 97
[2020-02-14] MEDS ORDERED: CeleBREX 200 MG CAP PO SCH (21:00)
--- NOTE | 2020-02-15 08:04 | Discharge Summary ---
Date of Service date of discharge: February 14, 2020 date of admission: 02-13-20 Admission HPI Per Admitting Provider Sean is a 64 year old male who complains of left knee pain, presents for pre-op evaluation prior to a left total knee replacement by dr Florence at [facility]. He complains of pain, crepitus, decreased range of motion, instability and stiffness in the left knee. He states that the symptoms have been chronic and non-traumatic and the symptoms occur constantly with intermittent worsening. Currently the patient states that the symptoms are moderate-severe. The pain is described as aching, sharp and throbbing. The symptoms occur continuously. The symptoms are aggravated by ascending stairs, daily activities, first steps while awake walking. Prior NSAIDs include Mobic, Aleve and IBU. Prior pain medications include Tylenol. He has had Pt and sometimes uses a knee brace. Principal Diagnosis left knee arthritis Discharge Exam Vital Signs Temp 36.7 C 02/14/20 11:20 Pulse 69 02/14/20 11:20 Resp 18 02/14/20 11:20 BP 125/76 02/14/20 11:20 Pulse Ox 97 02/14/20 11:20 Intake & Output 02/14/20 02/15/20 02/15/20 18:59 06:59 18:59 Output Total 150 / 150 Balance -150 / -150 Weight 113.4 kg Output: Drain Output 150 / 150 Left Knee Hemovac 150 / 150 Constitutional WD/WN, vitals as above no acute distress Musculoskeletal left knee: NVDI, calf SNT, negative john sign. DP palpable, able to wiggle toes/ankle movement without difficulty. Prineo dressing clean dry and intact. expected post-operative bruising noted. Discharge Data Allergies Allergy/AdvReac Type Severity Reaction Status Date / Time fentanyl Allergy Severe STOPPED Verified 02/13/20 07:34 BREATHING Penicillins Allergy Mild RASH Verified 02/13/20 07:34 Consultations 02/13/20 13:38 Consult Case Management - Discharge Planning Routine Procedures Performed Operation Date: 02/13/20 09:55 Actual Procedures p Left Total Knee Arthroplasty(Left) - Royce Florence DO Ordered Studies 02/13/20 05:00 US - OR guided needle placemen Routine Hospital Course (1) History of total left knee replacement: POD #1 s/p Left TKA pt/ot dvt proph with ARMEN/SCD/ASA plan for d/c home with HHPT later today, will have home nursing d/c hemovac tomorrow Total Time Total Time Spent Total Time Spent (In Minutes): 20 Total Time Includes: Examination of the Patient, Discharge Planning and Medication Reconciliation Discharge Plan Discharge Items Patient Disposition: Home - Home Health Services Reason For Visit: Unilateral Primary Osteoarthritis, Left Knee Discharge Diagnosis: left total knee replacement Condition on Discharge: Good Activity: Per Instructions section Lifting: Wait until after follow-up appointment Weightbearing Comment: WBAT with walker Non-emergency contact: Surgeon Call non-emergency contact if: you have any medication questions, your pain is not controlled, your temperature is above 101, your wound has increased redness, your wound has increased drainage and your wound pain has increased Follow-up/Referrals: Germain Freed MD [Primary Care Provider] - Diet: Regular Addtl Attending Provider Instructions: ACTIVITY RECOMMENDATIONS: SELF CARE INSTRUCTIONS AFTER TOTAL KNEE REPLACEMENT PLEASE PULL HEMOVAC DRAIN ON 02/15/20 A. You may need to continue a physical therapy program after discharge from the hospital. There are several options available to you. Your doctor will assist you in selecting the best one for you. 1. An out-patient facility 2 to 3 times a week for therapy or home therapy. 2. Continue working on all exercises taught to you in the hospital. Your goals should be to increase bending of your knee to 90 degrees and beyond and to fully straighten your knee. B. You may progress at your own pace from walking with a walker or crutches to a cane; then to no assistive devices. C. Make walking a part of your daily routine. Be up as much as comfortable with rest periods throughout the day. Rest with leg elevation is very important. Use the ice wrap frequently for the first 3-4 weeks. D. There are no restrictions on activities. You may ride in a car, shop, participate in routing clerk and all social activities. E. Wear the long elastic stockings (ARMEN hose) 20 hours a day for 2 weeks after surgery. They can be removed several times a day for laundering and for a bath. F. You may shower, no tub baths until cleared by your doctor. SPECIAL CARE INSTRUCTIONS: VERY IMPORTANT TO READ AND REVIEW A. There are a few signs you need to watch for after you are home. Call [facility] if you notice any of the followin. Increased severe knee pain. Some pain is expected especially when you exercise. 2. Increased swelling in your leg or knee; pain or swelling of the calf muscle in either lower leg. 3. Any fluid drainage from the incision. 4. Shortness of breath or chest pain. B. Please call [facility] at if you have any concerns or questions about your operation or recovery. The doctor or his nurse will return your call promptly. C. You must take antibiotics before dental work, bladder, bowel or other surgery. Your doctor will provide you with a permanent care to carry describing this precaution. IMPORTANT: * REMEMBER TO TAKE ASPIRIN, 81 MG, TWICE DAILY FOR 4 WEEKS UNLESS OTHERWISE DIRECTED. THIS IS YOUR BLOOD THINNER. * HIGH RISK PATIENTS MAY BE PRESCRIBED A STRONGER BLOOD THINNER. THIS WILL BE PROVIDED AT DISCHARGE. * CALL IF INCREASED PAIN, REDNESS, DRAINAGE OR FEVER GREATER THAT 101. * WEAR ARMEN HOSE 20 HOURS PER DAY FOR 2 WEEKS. * DERMABOND Prineo- This is a mesh tape dressing that is covered with glue. It should remain in place until the incision is properly healed, usually 10-14 days. This dressing is designed to naturally slough off. You may trim the excess mesh tape as it peels off. Incision may be briefly wet in a shower. Dry immediately by blotting with a clean, dry towel. Do not bath or swim until instructed by your doctor. Do not scratch, rub, or pick at the dressing. Do not apply any topical ointments or lotions until dressing is completely removed and/or instructed by your doctor. There may be a small piece of suture material at one end of your incision. Do not pull or trim this. If it is bothersome or catching on clothing, you may cover it with a band-aid. IF INCISION IS LEAKING THROUGH DRESSING, CALL THE OFFICE . FOLLOW UP VISIT: If appointment is not already scheduled: Please call [facility] to make a follow-up appointment for 2 weeks after your surgery at . Pending Studies at Discharge: No Stand-Alone Forms: [facility] [employer], Opioid Pain Management, Smoking Cessation Medications and DC Order Prescriptions: New celecoxib [Celebrex] 200 mg Capsule 200 mg PO BID 30 Days Qty: 60 RF: 0 aspirin 81 mg Tablet,Delayed Release (Dr/Ec) 81 mg PO BID 30 Days Qty: 60 RF: 0 acetaminophen 500 mg Tablet 1,000 mg PO Q8 21 Days Qty: 126 RF: 0 oxycodone 5 mg Tablet 5 - 10 mg PO Q6H PRN (Reason: pain) Qty: 30 RF: 0 docusate sodium 100 mg Capsule 100 mg PO BID 10 Days Qty: 20 RF: 0 clindamycin HCl 300 mg capsule 300 mg PO TID 7 Days Qty: 21 RF: 0 Continued pantoprazole [Protonix] 40 mg Tablet,Delayed Release (Dr/Ec) 40 mg PO DAILY PRN (Reason: Acid Reflux) RF: 0 Discontinued acetaminophen [Tylenol] 325 mg Capsule 650 mg PO QID PRN (Reason: Pain) RF: 0 Discharge Orders: Discharge Order (Routine); Ordered 02/14/20 Ordered By: Ronaldo Kerr/Other Patient Handouts: DVT Post Op Prevention Admission Data Admit Date/Time: 02/13/20 12:05 Attending Provider: Royce Florence Admit Provider: Royce Florence Primary Care Provider: Germain Freed Other Providers: [facility] Other Interventions: Discharge Summary Assessment (RN) Last Done: 02/14/20 08:58
== END 2020-02-14 14:10 | disposition home health service (06) ==
LOC: ASU 07:17 → 3E 07:17